=== PATIENT | male | born 1965 | race Caucasian/White ===

== ENCOUNTER 2017-02-22 09:27 | Emergency (ER) | payer OTHER ==
[~2017-02-22] VITALS: Ht 182.9 cm; Wt 108.0 kg
[2017-02-22 09:38] VITALS: BP_SYST 164
[2017-02-22 10:21] LABS: BASOPHILS % (AUTO) 0.4 % (0.0-2.0); EOSINOPHILS # (AUTO) 0.1 K/uL (0.0-0.4); EOSINOPHILS % (AUTO) 2.1 % (0.0-4.0); HEMATOCRIT 46.8 % (36-54); HEMOGLOBIN 16.3 g/dL (14.0-18.0); LYMPHOCYTES # (AUTO) 1.2 K/uL (1.0-5.5); LYMPHOCYTES % (AUTO) 19.7 % (20.5-51.5); MEAN CORPUSCULAR HEMOGLOBIN 34 pg (27-31); MEAN CORPUSCULAR HGB CONC 35 % (32-36); MEAN CORPUSCULAR VOLUME 97 fL (79.0-98.0); MONOCYTES # (AUTO) 0.5 K/uL (0.0-1.0); MONOCYTES % (AUTO) 7.5 % (1.7-9.3); NEUTROPHILS # (AUTO) 4.4 K/uL (1.8-7.7); NEUTROPHILS % (AUTO) 70.3 % (40.0-70.0); PLATELET COUNT (AUTO) 217 K/uL (130-430); RED BLOOD CELL COUNT(AUTO) 4.84 MIL/uL (4.2-6.2); RED CELL DISTRIBUTION WIDTH 11.4 % (9.0-15.0); WHITE BLOOD COUNT (AUTO) 6.2 K/uL (4.8-10.8)
[2017-02-22 10:29] LABS: CALCIUM 8.8 mg/dL (8.4-11.0); CREATININE 0.9 mg/dL (0.55-1.30); POTASSIUM 3.8 mmol/L (3.5-5.1)
[2017-02-22 10:32] LABS: INR 1.1 (0.80-1.20); PROTHROMBIN TIME 11.4 SECS (9.5-12.5)
[2017-02-22 10:35] LABS: TOTAL BILIRUBIN 0.8 mg/dL (0.0-1.0); TOTAL PROTEIN, SERUM 6.6 g/dL (6.4-8.3)
[2017-02-22 11:45] VITALS: BP_SYST 132
== END 2017-02-22 11:45 | disposition home or self-care (01) ==
LOC: SED 09:27
DX: R53.1 Weakness (principal); Z88.2 Allergy status to sulfonamides; Z88.7 Allergy status to serum and vaccine
CPT/HCPCS: 36415; 80053; 82550-TC; 83735-TC; 84484; 85025; 85610-TC; 85730-TC; 93005; 99285